=== PATIENT | female | born 1935 | race Caucasian/White ===

== ENCOUNTER 2016-11-10 10:03 | Observation (INO) ==
--- NOTE | 2016-11-10 10:21 | Emergency Department Note ---
Disposition Clinical Impression: Hypertensive urgency Disposition: Admitted As Inpatient Condition: Fair Neuro HPI - General Chief Complaint: ED Neuro Symptoms/Deficit Stated Complaint: high BP, slurred speach, Time Seen by Provider: 11/10/16 10:17 Source: patient, family Limitations: no limitations Nursing Notes Reviewed: Yes Vital Signs Reviewed: Yes - History of Present Illness HPI Narrative: Mrs. Mendes, an 81yo female, presents from home by EMS with CC: slurred speech , HTN. Patient's granddaughter bedside. Patient has been being managed for HTN on outpatient basis by PCP. A family member who is a PA has been checking on her. On phone conversation with family member last night, patient was at baseline. Phone conversation this morning, same family member noted slurred and slowed speech. Patient's granddaughter noted that, while walking into the emergency department today, patient veered to the right though she should have been walking straight. Patient states that she is not having difficulty finding her words however she does note difficulty speaking her words. Denies difficulty chewing or swallowing. Admits: Difficulty speaking. Denies: Difficulty finding words, difficulty chewing, difficulty swallowing, chest pain, palpitations, weakness, abdominal pain, changes in bowel or bladder , headache. No hx CAD, ACS, CVA. Last known normal was last night, specific time unknown. Patient lives at home alone. PMH: HTN, HLD, depression - Related Data Home Medications: Home Medications Medication Instructions Recorded Confirmed Atorvastatin Calcium [Lipitor] 20 mg PO DAILY 03/18/16 11/10/16 Levothyroxine [Synthroid] 25 mcg PO DAILY 03/18/16 11/10/16 Metoprolol [Lopressor] 100 mg PO DAILY 03/18/16 11/10/16 Multivitamin [Multi-Day Vitamins] 1 tab PO DAILY 03/18/16 11/10/16 Losartan/Hydrochlorothiazide 1 tab PO DAILY 11/10/16 11/10/16 [Hyzaar 100-25 Tablet] Paroxetine HCl [Paxil] 20 mg PO DAILY 11/10/16 11/10/16 Allergies/Adverse Reactions: Allergies Allergy/AdvReac Type Severity Reaction Status Date / Time No Known Allergies Allergy Verified 04/01/16 09:48 All systems ED: reviewed and negative except as stated. (as per HPI) Past Medical History - Past Medical History Medical history: Reports: hyperlipidemia, hypertension, thyroid disease, other Surgical history: Reports: , other Psychiatric history: Reports: no psych history - Social History Smoking Status: Unknown if ever smoked Smokeless Tobacco Status: No Alcohol use: Reports: none Drug use: Reports: none Physical Exam General: Patient is alert, oriented, and in no acute distress. Her speech is slowed but she is still able to articulate her words with mild dysarthria. HEENT: No facial asymmetry. Head is normocephalic and atraumatic. PERRLA, EOMI. trachea midline. Cardiovascular: Heart regular rate and rhythm without clicks, rubs, gallops, or murmurs. No JVD. PMI nondisplaced. Respiratory: Symmetric chest rise with good respiratory effort. Bilateral breath sounds are clear without wheezing, crackles, or rhonchi. Abdomen: Bowel sounds present normoactive x-4 quadrants. Abdomen is soft, nondistended, and nontender. No organomegaly noted. Musculoskeletal: Muscle strength 5/5 and symmetric bilaterally in upper and lower extremities. DTRs 2/4 and symmetric bilaterally in upper and lower extremities. Neuro: Cranial nerves II through XII without deficit. Sensation light touch intact. Negative finger-nose, negative [id number]. Psych: Patient's affect is appropriate for situation. - General Limitations: no limitations General appearance: alert, in no apparent distress Course Course Narrative: Patient is not a candidate for TPA given her last known well is greater than 6 hours ago. Will not call code stroke at this time. We will continue stroke workup however. Given patient's poorly controlled hypertension, concern of central etiology includes hypertensive encephalopathy, lacunar infarcts, aneurysm, intracerebral hemorrhage. Anticipate admission for continued neurologic workup. Final disposition pending results and discussed with my attending. Labwork unremarkable, specifically no electrolyte abnormalities, no anemia, negative troponin. CXR and CT head impression as no acute abnormalities. Chest X-Ray 11/10/16 10:20 IMPRESSION: Mild left basilar atelectasis or developing infiltrate. D/ / 11/10/2016 10:37:36 Negrito Hurtado MD / [facility]ie Interpreting Provider: Negrito Hurtado MD Head CT 11/10/16 10:20 IMPRESSION: No acute intracranial abnormality. D/ / Judy Cotto MD / Judy Cotto MD Interpreting Provider: Judy Cotto MD Patient's BP is 200/100. Gave 5mg hydralazine. BP improved to 170's/80. Spoke with hospitalist, Dr. Gray, who agrees to accept the patient for continued management of HTN and continued neuro workup. Vital Signs Temperature 98.1 F 11/10/16 10:06 Pulse Rate 70 11/10/16 10:06 Respiratory Rate 18 11/10/16 10:06 Blood Pressure 202/99 11/10/16 10:06 O2 Sat by Pulse Oximetry 96 11/10/16 10:06 Temperature 97.5 F L 11/10/16 12:18 Pulse Rate 68 11/10/16 12:18 Respiratory Rate 17 11/10/16 12:18 Blood Pressure 183/97 11/10/16 12:18 O2 Sat by Pulse Oximetry 96 11/10/16 12:18 Oxygen Delivery Oxygen Delivery Room Air Neuro Symptoms/Deficit - Medical Records Medical records reviewed: Yes I reviewed the patient's medical records. - Lab Data Lab results reviewed: Yes I reviewed the patient's lab results. Result diagrams: 11/10/16 10:20 11/10/16 10:20 Lab Results 11/10/16 11/10/16 11/10/16 Range/Units 10:09 10:20 10:20 WBC 9.6 (4.3-11.1) K/mcL RBC 4.22 (3.82-4.97) M/mcL Hgb 13.3 (11.5-15.4) g/dL Hct 39.5 (35.3-44.9) % MCV 93.6 (83.0-100.0) fL MCH 31.5 (28.0-33.3) pg MCHC 33.7 (31.6-35.5) g/dL RDW 12.6 (11.5-14.5) % Plt Count 137 L (140-400) K/mcL MPV 10.9 (9.4-12.4) fL Immature Gran % 0.4 (0-4) % Seg Neutrophils % 83.8 % Lymphocytes % 10.1 % Monocytes % 5.3 % Eosinophils % 0.1 % Basophils % 0.3 % Neutrophils # 8.1 (1.6-8.9) K/mcL Lymphocytes # 1.0 (0.6-4.6) K/mcL Monocytes # 0.5 (0.0-1.3) K/mcL Eosinophils # 0.0 (0.0-0.6) K/mcL Basophils # 0.0 (0.0-0.2) K/mcL PT 12.2 H (9.4-12.1) Seconds INR 1.1 APTT 27.5 (26.0-36.0) Seconds Sodium (136-145) mEq/L Potassium (3.5-4.5) mEq/L Chloride (98-109) mEq/L Carbon Dioxide (19-29) mEq/L BUN (7-20) mg/dL Creatinine (0.57-1.11) mg/dL Est GFR ( Amer) (> 60) Est GFR (Non-Af Amer) (> 60) BUN/Creatinine Ratio (6-26) Glucose (70-99) mg/dL POC Glucose 111 H (58-89) Calculated Osmolality (280-300) Calcium (8.6-10.8) mg/dL Troponin I (0-0.03) ng/mL 11/10/16 11/10/16 Range/Units 10:20 10:20 WBC (4.3-11.1) K/mcL RBC (3.82-4.97) M/mcL Hgb (11.5-15.4) g/dL Hct (35.3-44.9) % MCV (83.0-100.0) fL MCH (28.0-33.3) pg MCHC (31.6-35.5) g/dL RDW (11.5-14.5) % Plt Count (140-400) K/mcL MPV (9.4-12.4) fL Immature Gran % (0-4) % Seg Neutrophils % % Lymphocytes % % Monocytes % % Eosinophils % % Basophils % % Neutrophils # (1.6-8.9) K/mcL Lymphocytes # (0.6-4.6) K/mcL Monocytes # (0.0-1.3) K/mcL Eosinophils # (0.0-0.6) K/mcL Basophils # (0.0-0.2) K/mcL PT (9.4-12.1) Seconds INR APTT (26.0-36.0) Seconds Sodium 137 (136-145) mEq/L Potassium 3.6 (3.5-4.5) mEq/L Chloride 100 (98-109) mEq/L Carbon Dioxide 26 (19-29) mEq/L BUN 17 (7-20) mg/dL Creatinine 0.94 (0.57-1.11) mg/dL Est GFR ( Amer) > 60 (> 60) Est GFR (Non-Af Amer) 57 L (> 60) BUN/Creatinine Ratio 18 (6-26) Glucose 106 H (70-99) mg/dL POC Glucose (58-89) Calculated Osmolality 286 (280-300) Calcium 9.7 (8.6-10.8) mg/dL Troponin I 0.00 (0-0.03) ng/mL - Radiology Data Radiology results reviewed: Yes I reviewed the patient's radiology results. Chest X-Ray 11/10/16 10:20 IMPRESSION: Mild left basilar atelectasis or developing infiltrate. D/ / 11/10/2016 10:37:36 Negrito Hurtado MD / [facility] Interpreting Provider: Negrito Hurtado MD Head CT 11/10/16 10:20 IMPRESSION: No acute intracranial abnormality. D/ / Judy Cotto MD / Judy Cotto MD Interpreting Provider: Judy Cotto MD - EKG Data EKG attestation: Yes I reviewed and interpreted this EKG. EKG results narrative: EKG dated 10 November 2016 interpreted as sinus rhythm with rate of 65. Normal intervals. Normal axis. Nonspecific ST-T changes. Compared to previous dated 03/11/2016 showing no acute ischemic changes in comparison. NIH Stroke Scale - Level of Consciousness LOC: Alert - LOC Questions LOC Questions: Answers both correctly - LOC Commands LOC Commands: Performs both correctly - Best Gaze Best Gaze: Normal - Visual Visual: No visual loss - Facial Palsy Facial Palsy: Normal - Motor Arms Motor Arm-Left: No drift for 10 seconds Motor Arm-Right: No drift for 10 seconds - Motor Legs Motor Leg-Left: No drift for 5 seconds Motor Leg-Right: No drift for 5 seconds - Limb Ataxia Limb Ataxia: Absent of affected limb too weak to perform exam - Sensory Sensory: Normal - Best Language Best Language: No aphasia - Dysarthria Dysarthria: Mild, slurs some words - Extinction and Inattention Extinction and Inattention: Normal - NIHSS Total Score NIHSS Total Score: 1 TPA Checklist - Source Information Source: Family - Eligibilty for IV tPA 1. LKW equal to or less than 4.5 hours be before treatment: No - LKW: 3-4.5 hrs Add. Contraindications Patient/family understanding: The patient/family members have been counseled and understood the risk, benefit , and alternatives of treatment. Critical Care Time Critical Care Time: Yes Total Critical Care Time: 35 Attestation: Critical care performed: Time is exclusive of separately billable procedures. Time includes: direct patient care, patient reassessment, coordination of patient care, interpretation of data (laboratory data, radiology data, and respiratory data), review of patient's medical records, medical consultation and documentation of patient care. Procedures included in critical care time: Procedures excluded from critical care time: Attestation Statement - Attestation Attestation: I examined this patient and my medical decision-making was reviewed with the COTTON BREEDER/PA/Advanced Practice Nurse/Resident Physician. I agree with the documented findings, disposition and treatment plan as described except to the extent set forth below. Patient emergency department complaining of difficulty speaking. She is brought in by a family member. They state when they called her today that she was speaking slower and was slurred. She was fine yesterday. They said they have had trouble controlling her blood pressure. She recently had a change in her medications but her pressures been running about 200 systolic. She denies any chest pain. She denies any numbness or tingling in her extremities. On examination she is awake and alert. She moves all extremities. She has no pronator drift. No ataxia. Her speech is slow. Plan. CT head is unremarkable. Also mental status workup is unremarkable as well. The patient is not confused. She having speech difficulties. Unclear if this is stroke versus hypertensive encephalopathy. She is given a dose of hydralazine which did lower her pressure. She is admitted to medicine. At this time her blood pressures in the 170 systolic. Do not want to drop her any further this time.
[2016-11-10 10:31] LABS: Basophils % 0.3 %; Eosinophils % 0.1 %; Hematocrit 39.5 % (35.3-44.9); Hemoglobin 13.3 g/dL (11.5-15.4); Immature Granulocytes % 0.4 % (0-4); Lymphocytes % 10.1 %; Mean Corpuscular HGB Conc 33.7 g/dL (31.6-35.5); Mean Corpuscular Hemoglobin 31.5 pg (28.0-33.3); Mean Corpuscular Volume 93.6 fL (83.0-100.0); Mean Platelet Volume 10.9 fL (9.4-12.4); Monocytes # 0.5 K/mcL (0.0-1.3); Monocytes % 5.3 %; Neutrophils # 8.1 K/mcL (1.6-8.9); Platelet Count 137 K/mcL (140-400); Red Blood Count 4.22 M/mcL (3.82-4.97); Red Cell Distribution Width 12.6 % (11.5-14.5); Segmented Neutrophils % 83.8 %
[2016-11-10 10:37] LABS: INR 1.1; Prothrombin Time 12.2 Seconds (9.4-12.1)
[2016-11-10 10:40] LABS: Activated Partial Thrombo Time 27.5 Seconds (26.0-36.0)
[2016-11-10 10:43] LABS: BUN/Creatinine Ratio 18 (6-26); Blood Urea Nitrogen 17 mg/dL (7-20); Calcium 9.7 mg/dL (8.6-10.8); Carbon Dioxide 26 mEq/L (19-29); Chloride 100 mEq/L (98-109); Glucose 106 mg/dL (70-99); Osmolality,Calculated 286 (280-300); Potassium 3.6 mEq/L (3.5-4.5); Sodium 137 mEq/L (136-145); eGFR For African Americans > 60 (> 60); eGFR For Non-African Americans 57 (> 60)
[2016-11-10] MEDS ORDERED: Acetaminophen 325 MG TABLET PO PRN (13:31)
[2016-11-10] MEDS ORDERED: Naloxone 0.4 MG/ML INJ IVP PRN (13:31)
--- NOTE | 2016-11-10 14:02 | Internal Med History&Physical ---
Date of Encounter: 11/10/16 Time of Encounter: 12:30 Assessment and Plan (1) Difficulty speaking Current visit: Yes Status: Acute CT of the head showed no acute intracranial process, chronic small vessel disease ischemic changes. EKG showed sinus rhythm and heart rate 64. No acute changes. Check MRI of the brain, Doppler of carotids, echocardiogram. Aspirin. Lipitor. Blood pressure control. (2) Hypertensive urgency Current visit: Yes Status: Acute Patient took his morning metoprolol 100 mg and Hyzaar 100-25. Her blood pressure in ED was 202/99. She received IV hydralazine 5 mg with improvement of blood pressure to 183/97. Decrease metoprolol to 25 mg in the morning. Change losartan to 50 mg twice a day. To start hydralazine 50 mg 3 times a day. Hold for SBP < 160. We will continue to monitor blood pressure and adjust medications accordingly. (3) CVA (cerebral vascular accident) Current visit: Yes Status: Suspected suspected expressive aphasia. plan as above. Qualifiers: CVA mechanism: unspecified Qualified Code(s): I63.9 - Cerebral infarction, unspecified (4) Hyperlipidemia Current visit: Yes Status: Acute continue lipitor Qualifiers: Hyperlipidemia type: unspecified Qualified Code(s): E78.5 - Hyperlipidemia , unspecified Internal Medicine - H&P: HPI Chief complaint: Slurred speech this morning Admitted From: Home Plans for Post Hospital Care: Home History of present illness: Ms. Mendes is a 81 year old female with past medical history of hypertension and hyperlipidemia who was brought by family members to [address] [place] [address]. A week ago, the patient had a SBP of 220 and she developed mild shortness of breath on exertion. She was started on metoprolol 100 mg daily but her SBP continued to be elevated in the 180. This morning, her granddaughter, who is a PA, noted that the patient was having difficulty speaking, and some dizziness. Last time the patient was seen normal was yesterday night while talking over the phone with her daughter. She denies any chest pain, headaches, syncope, lower extremity edema, pain, bleeding, abdominal pain, other focal deficits, new vision problems or urinary complaints. Patient states that she has no difficulty finding the words but she has trouble in speaking her mind fast. Per daughter, the patient is almost at her baseline now Past Med Surg Social Fam HX - Past Medical History Medical history: hyperlipidemia, hypertension, thyroid disease, other Psychiatric history: no psych history - Past Surgical History Surgical History: , other - Social History Smoking Status: Unknown if ever smoked Smokeless Tobacco Status: No Alcohol use: none Drug use: none - Family History Mother Hx Family Cardiac Disorders: Yes (htn) Internal Medicine - H&P: Meds Atorvastatin Calcium [Lipitor] 20 mg PO DAILY 03/18/16 [History] Levothyroxine [Synthroid] 25 mcg PO DAILY 03/18/16 [History] Metoprolol [Lopressor] 100 mg PO DAILY 03/18/16 [History] Multivitamin [Multi-Day Vitamins] 1 tab PO DAILY 03/18/16 [History] Losartan/Hydrochlorothiazide [Hyzaar 100-25 Tablet] 1 tab PO DAILY 11/10/16 [ History] Paroxetine HCl [Paxil] 20 mg PO DAILY 11/10/16 [History] Allergies No Known Allergies Allergy (Verified 04/01/16 09:48) All Systems PM: A 10-system review of systems was performed and is negative for pertinent findings except as documented above in the HPI. - Constitutional Vitals: Temp Pulse Resp BP Pulse Ox 97.5 F L 68 17 183/97 96 11/10/16 12:18 11/10/16 12:18 11/10/16 12:18 11/10/16 12:18 11/10/16 12:18 General appearance: Present: cooperative, A&O X 3, pleasant, no acute distress, answers questions appropriately - Eye Eye exam: Present: PERRL, sclera anicteric - Neck Neck exam general surgery: Present: supple, trachea midline. Absent: lymphadenopathy - Respiratory Respiratory exam: Present: CTAB - Cardiovascular Cardiovascular exam: Present: RRR - GI/Abdominal GI/Abdominal exam: Present: normal bowel sounds, soft. Absent: distended, tenderness - Extremities Exam Extremities exam: Absent: pedal edema (puffy legs, no pitting edema) - Back Exam Back exam: Absent: CVA tenderness (L), CVA tenderness (R) - Neurological Exam Neurological exam: Present: alert, CN II-XII intact (grossly intact), motor sensory deficit, normal gait, oriented X3, no focal deficits, strengths equal and symetr throughout. Absent: pronater drift, facial droop, speech deficit - Skin Skin exam: Present: dry. Absent: rash Internal Med - H&P Results - Labs CBC & Chem 7: 11/10/16 10:20 11/10/16 10:20
[2016-11-10] MEDS: hydrALAZINE 25 MG TABLET PO SCH ×3 (14:48→23:23)
[2016-11-10] MEDS: Aspirin 81 MG TAB.CHEW PO SCH (14:49)
[2016-11-10 21:42] LABS: Bilirubin,Urine Negative (Negative); Blood,Urine Negative (Negative); Clarity,Urine Clear (Clear); Color,Urine Yellow (Yellow); Glucose,Urine (UA) Normal (Normal); Ketones,Urine Negative (Negative); Leukocyte Esterase,Urine Negative (Negative); Nitrite,Urine Negative (Negative); PH,Urine 6.5 pH Units (5.0-8.0); Protein,Urine Negative (Neg-Trace); Specific Gravity,Urine 1.009 (1.010-1.025); Urobilinogen,Urine Normal (Normal)
[2016-11-11 04:58] LABS: Basophils % 0.5 %; Eosinophils # 0.1 K/mcL (0.0-0.6); Eosinophils % 0.9 %; Hemoglobin 12.4 g/dL (11.5-15.4); Immature Granulocytes % 0.3 % (0-4); Lymphocytes # 1.2 K/mcL (0.6-4.6); Lymphocytes % 15.2 %; Mean Corpuscular HGB Conc 34.4 g/dL (31.6-35.5); Mean Corpuscular Hemoglobin 31.8 pg (28.0-33.3); Mean Corpuscular Volume 92.3 fL (83.0-100.0); Mean Platelet Volume 11.3 fL (9.4-12.4); Monocytes # 0.6 K/mcL (0.0-1.3); Monocytes % 7.7 %; Neutrophils # 5.9 K/mcL (1.6-8.9); Platelet Count 121 K/mcL (140-400); Red Cell Distribution Width 12.5 % (11.5-14.5); Segmented Neutrophils % 75.4 %
[2016-11-11 05:12] LABS: BUN/Creatinine Ratio 21 (6-26); Blood Urea Nitrogen 18 mg/dL (7-20); Calcium 9.3 mg/dL (8.6-10.8); Carbon Dioxide 28 mEq/L (19-29); Chloride 99 mEq/L (98-109); Chol/HDL Ratio 3.2 (0-4.9); Cholesterol 109 mg/dL (< 200); Glucose 94 mg/dL (70-99); HDL Cholesterol 34 mg/dL (40-59); LDL Cholesterol,Calculated 55 mg/dL (0-99); Magnesium 1.8 mg/dL (1.6-2.6); Osmolality,Calculated 284 (280-300); Phosphorous 3.4 mg/dL (2.3-4.7); Sodium 136 mEq/L (136-145); Triglycerides 101 mg/dL (< 150); eGFR For African Americans > 60 (> 60); eGFR For Non-African Americans > 60 (> 60)
[2016-11-11] MEDS ORDERED: Metoprolol 100 MG TABLET PO SCH ×2 (09:00)
[2016-11-11] MEDS ORDERED: Levothyroxine 25 MCG TABLET PO SCH (09:00)
[2016-11-11] MEDS: hydrALAZINE 25 MG TABLET PO SCH ×2 (09:05→09:07)
[2016-11-11] MEDS: Aspirin 81 MG TAB.CHEW PO SCH (09:05)
[2016-11-11 10:44] VITALS: BP 169/67
--- NOTE | 2016-11-11 11:55 | ECHO - Doppler Report ---
Echo with Saline Contrast Name: Agnieszka Mendes Date of Study: 11/10/2016 Date: 1935 Ht: 60.0 in Medical Record#: [id number] Age: 81 Wt: 121.0 lb Gender: Female BSA: 1.51 Order #: [id number] Location: [facility] Room #: 3B11 Reading Physician: Dotty Sr DO Call Center Recruiter: Alka Moreno RVT Ordering Physician: Uzma Diez MD Primary Physician: Iris García CNP Indications: Cerebrovascular Accident Impressions: LVEF 60%. Normal left ventricular size and systolic function. There is evidence of mild diastolic dysfunction of the left ventricle. Normal right ventricular size and function. Mild-moderate mitral regurgitation. Mild-moderate tricuspid regurgitation. Mild-moderate pulmonic regurgitation. No pulmonary hypertension. No PFO with saline contrast. Left Ventricular Wall Motion: Rest Echo Findings All wall segments showed normal motion. Findings: Study Quality * Technically adequate exam. ECG Findings * Normal sinus rhythm. Left Ventricle * LVEF 60%. * Normal LV chamber size, wall thickness and function. * Mild left ventricular diastolic dysfunction. Mitral Valve * Normal mitral valve structure. * No mitral stenosis. * Mild-moderate mitral regurgitation. Aortic Valve * No aortic regurgitation. * Trileaflet aortic valve. * Normal aortic valve structure. * No aortic stenosis. Tricuspid Valve * Tricuspid valve not well visualized. * Mild-moderate tricuspid regurgitation. * Estimated RA pressure is 3 mmHg. * Estimated RVSP is 26 mmHg. * No pulmonary hypertension. Pulmonic Valve * Pulmonic valve is not well visualized. * No pulmonic stenosis. * Mild-moderate pulmonic regurgitation. Pulmonary Artery * Pulmonary artery not well visualized. Right Ventricle * Normal right ventricular structure and function. Right Atrium * Normal right atrial size. Left Atrium * Mildly dilated left atrium. Interatrial Septum * No evidence of PFO by color Doppler. * No evidence of PFO with agitated saline contrast. IVC * The IVC is not dilated. Pericardium * There is no pericardial effusion present. Aorta * Normally sized aortic root. History Hypertension Hypercholesteremia Family History of CAD Contrast: Agitated saline 20 ml. Measurements: BP: 134/ 76 2D Normal Values RVIDd: 3.00 cm <2.7 cm IVSd: .80 cm 0.6 - 1.0 cm LVIDd: 4.40 cm 3.7 - 5.6 cm LVPWd: .90 cm 0.6 - 1.1 cm LVIDs: 2.90 cm 1.5 - 3.6 cm AO: 2.60 cm < 4.0 cm LA: 3.10 cm 2.0 - 4.0cm %FS: 34.10 cm >25 % LA volume: 36 Mitral Valve Peak E:.63 m/sec Peak A:.84 m/sec E/A Ratio:0.8 Peak E' Lat Manjit:5.61 cm/s Peak E' Med Manjit:5.54 cm/s E/E' Lat Ratio:11.3 E/E' Med Ratio:11.4 Tricuspid Valve TV Regurg Peak Grad: 23.00mmHg TV Regurg Peak Manjit: 2.39m/sec Updated by Dotty Sr on 11/11/2016 11:47:21 AM electronically signed on 11/11/2016 11:48:42 AM with status of Final Wall Motion Rowe: 1=Normal, 2=Hypokinesis, 3=Akinesis, 4=Dyskinesis, 5=Aneurysmal, 6=Hyperkinetic, X=Not Visualized (Blank)=Missing
--- NOTE | 2016-11-11 15:06 | Discharge Summary ---
Date of Encounter: 11/11/16 Time of Encounter: 14:15 - Discharge Diagnosis (1) CVA (cerebral vascular accident) Priority: Primary Status: Resolved Comments: Patient asymptomatic throughout this admission. Blood pressure more controlled. Head CT negative. Brain MRI negative. Carotid ultrasound unremarkable. CVA ruled out. Qualifiers: CVA mechanism: unspecified Qualified Code(s): I63.9 - Cerebral infarction, unspecified (2) Difficulty speaking Priority: Primary Status: Resolved (3) Hyperlipidemia Priority: Secondary Status: Chronic Comments: Lipid panel unremarkable, recommend continue statin and a low-cholesterol diet Qualifiers: Hyperlipidemia type: unspecified Qualified Code(s): E78.5 - Hyperlipidemia , unspecified (4) Hypertensive urgency Priority: Primary Status: Resolved - Discharge Medications Prescriptions: Aspirin 81 mg PO DAILY #30 tab.chew Hydralazine HCl 50 mg PO Q8H #90 tablet Losartan [Cozaar] 50 mg PO BID #60 tablet Metoprolol [Lopressor] 25 mg PO DAILY #30 tablet Home Medications: Atorvastatin Calcium [Lipitor] 20 mg PO DAILY 03/18/16 [History] Levothyroxine [Synthroid] 25 mcg PO DAILY 03/18/16 [History] Multivitamin [Multi-Day Vitamins] 1 tab PO DAILY 03/18/16 [History] Paroxetine HCl [Paxil] 20 mg PO DAILY 11/10/16 [History] Aspirin 81 mg PO DAILY #30 tab.chew 11/11/16 [Rx] Hydralazine HCl 50 mg PO Q8H #90 tablet 11/11/16 [Rx] Losartan [Cozaar] 50 mg PO BID #60 tablet 11/11/16 [Rx] Metoprolol [Lopressor] 25 mg PO DAILY #30 tablet 11/11/16 [Rx] Allergies/Adverse Reactions: Allergies No Known Allergies Allergy (Verified 04/01/16 09:48) Procedures/tests Complete & Pending: Procedures Performed prior 72 hours Category Date Time Status MR head/brain wo con [MR] Routine MRI 11/10/16 13:28 Completed ECG 12 lead ECG [ECG] Routine Y 11/10/16 10:13 Completed EV carotid duplex imaging BI Routine Y 11/10/16 13:28 Completed EV echocardiogram Routine Y 11/10/16 13:28 Completed Date of admission: 11/10/16 11:49 Primary care physician: Iris García CNP Consults: 11/10/16 13:52 Consult to Speech Therapy [CONS] Routine Comment: Evaluate, develop and implement POC Reason for Consult: slurred speech Call Completed: No Discharging clinician: Karla Lovelace Anticipated date of discharge: 11/11/16 - Patient Status Disposition: Home, Self-Care Condition: Good Functional capacity at discharge: independent ambulation Overall status at discharge: patient is back to baseline - Discharge Instructions Instructions: Transient Ischemic Attack (GEN), Hypertension (GEN) Follow Up With: Iris García CNP [Primary Care Provider] - Additional Instructions: Follow-up with primary care provider in one to 2 weeks, check blood pressure daily. - Diet and Activity Activity: increase activity as tolerated Diet: low fat, low cholesterol, low salt diet Hospital course: Ms. Mendes is a 81 year old female with past medical history of hypertension, hyperlipidemia, thyroid disease. Patient was brought to the emergency department by family members secondary to slurred speech. Last week, patient had a systolic blood pressure of 220 and she developed mild shortness of breath with exertion. She was started on metoprolol 100 mg daily but her blood pressure continued to be elevated with a systolic blood pressure consistently in the 180s. On the morning of presentation, the patient's granddaughter noticed that she was having difficulty speaking and was associated with some dizziness. Patient denied any chest pain, headaches, syncope, vision problems, urinary complaints. Workup in the emergency department unremarkable. Chest x- ray with mild bibasilar atelectasis. Head CT negative. Patient was admitted to the hospitalist service for further evaluation and management. Patient had returned to her baseline prior to admission. No focal neurological weaknesses noted. Patient denied pain or shortness of breath throughout this admission. Brain MRI negative for acute processes. Echocardiogram unremarkable with ejection fraction of 60%. Patient euvolemic on examination throughout this admission. Carotid Doppler unremarkable. Her blood pressure was initially uncontrolled and her educations were adjusted. She was normotensive on the discharge. Her home dosing of metoprolol 100 mg daily was changed to 25 mg daily. Losartan/HCTZ was discontinued and she was started on losartan 100 mg. She was also started on hydralazine 50 mg every 8 hours. She was discharged home in stable condition with close outpatient follow-up recommended. She was also instructed to perform daily blood pressure checks, keep a log, and follow- up with her primary care provider. Of note, as the patient had no focal neurological weaknesses, OT and PT consultations were not warranted. Speech therapy was brought on board who surmised she had no needs. ITS Impressions Chest X-Ray 11/10/16 10:20 IMPRESSION: Mild left basilar atelectasis or developing infiltrate. D/ / 11/10/2016 10:37:36 Negrito Hurtado MD / frankie Interpreting Provider: Negirto Hurtado MD Head CT 11/10/16 10:20 IMPRESSION: No acute intracranial abnormality. D/ / Judy Cotto MD / Judy Cotto MD Interpreting Provider: Judy Cotto MD Brain MRI 11/10/16 13:28 IMPRESSION: No acute intracranial abnormality. Mild parenchymal volume loss. Mild chronic microvascular disease. D/ / Thomas Queen MD / Thomas Queen MD Interpreting Provider: Thomas Queen MD Echo with saline contrast impressions: LVEF 60%. Normal left ventricular size and systolic function. There is evidence of mild diastolic dysfunction of the left ventricle. Normal rectal ventricular size and function. Mild-moderate mitral regurgitation. Mild-moderate tricuspid regurgitation. Mild-moderate pulmonic regurgitation. No pulmonary hypertension. No PFO with saline contrast. 11/10/16 18:42 - Vascular Preliminary by [facility]: [id number] : 1935 Patient Age: 81 Carotid Doppler Preliminary Report Nonstenotic plaque only bilateral - Time Spent with Patient Total time spent providing and/or coordinating discharge services: - Constitutional Vitals: Temp Pulse Resp BP Pulse Ox 97.5 F L 61 16 169/67 95 11/11/16 10:43 11/11/16 10:43 11/11/16 10:43 11/11/16 10:43 11/11/16 10:43 General appearance: Present: cooperative, A&O X 3, pleasant, no acute distress, answers questions appropriately - Head Head exam: Present: atraumatic, normocephalic - Eye Eye exam: Present: PERRL, conjuntiva pink, sclera anicteric Pupils: Present: PERRL - Neck Neck exam general surgery: Present: supple, trachea midline. Absent: lymphadenopathy - Respiratory Respiratory exam: Present: CTAB. Absent: accessory muscle use, rales, respiratory distress, rhonchi, wheezes - Cardiovascular Cardiovascular exam: Present: RRR, +S1, +S2. Absent: diastolic murmur, gallop, rubs, systolic murmur - GI/Abdominal GI/Abdominal exam: Present: normal bowel sounds, soft, no peritoneal signs. Absent: distended, tenderness - Extremities Exam Extremities exam: Present: warm, radial pulses palpable and symetrical. Absent : calf tenderness, cyanotic, pedal edema - Neurological Exam Neurological exam: Present: alert, CN II-XII intact, normal gait, oriented X3, no focal deficits, strengths equal and symetr throughout. Absent: pronater drift, facial droop, speech deficit - Skin Skin exam: Present: dry, intact, normal color, warm
--- NOTE | 2016-11-11 15:25 | Electrocardiograph Report ---
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
--- NOTE | 2016-11-11 19:39 | Carotid Imaging Report ---
Carotid Duplex Patient Name:Agnieszka Mendes Order Number:[id number] Procedure Date:11/10/2016 Date:1935ge:81 yrs Gender:Female Lt BP:134 / 76 mmHg Location:[facility] Room #: 3B11 Manager Nicu:Alka Moreno RVT Referring MD:Uzma Diez MD raised printer:Iris García, [employer] Reading MD:John Peacock MD , FACS Risk Factors Yes/No Hypertension Yes Hypercholesterolemia Yes Impressions: Findings: Bilateral carotid system have nonstenotic plaque. Findings Carotid Duplex: Right: There is nonstenotic plaque in the right bifurcation. There is smooth heterogeneous plaque. There is nonstenotic plaque in the right proximal internal carotid artery. There is smooth heterogeneous plaque. Left: There is nonstenotic plaque in the left bifurcation. There is smooth heterogeneous plaque. There is nonstenotic plaque in the left proximal internal carotid artery. There is smooth heterogeneous plaque. Prior Study: No prior study available for comparison. Carotid Results Right PSV EDV Assessment Proximal CCA 48 11 Normal Mid CCA 53 11 Normal Distal CCA 50 10 Normal Bifurcation 46 8 Non Stenotic Plaque Proximal ICA 39 9 Non Stenotic Plaque Mid ICA 81 15 Normal Distal ICA 81 18 Normal ECA 98 11 Normal Vertebral Artery 40 9 Antegrade Flow Left PSV EDV Assessment Proximal CCA 75 11 Normal Mid CCA 52 12 Normal Distal CCA 54 10 Normal Bifurcation 47 7 Non Stenotic Plaque Proximal ICA 43 10 Non Stenotic Plaque Mid ICA 79 19 Normal Distal ICA 90 16 Normal ECA 82 7 Normal Vertebral Artery 48 11 Antegrade Flow Ratio's Right ICA/CCA Ratio: 1.52 ICA/CCA Values: 81/53 Left ICA/CCA Ratio: 1.73 ICA/CCA Values: 90/52 Updated by John Peacock MD, FACS on 11/11/2016 7:34:38 PM John Peacock MD electronically signed on 11/11/2016 7:35:17 PM with status of Final
== END 2016-11-11 16:30 | disposition home or self-care (01) ==
LOC: 3BNU 10:03 → EMEROO 10:03 → 3BNU 12:00
PROVIDERS: ADMIT Nurse Practitioner Family; ATTEND Nurse Practitioner Family

== ENCOUNTER 2019-08-31 18:53 | Inpatient (IN) ==
[2019-09-01] MEDS ORDERED: Naloxone 0.4 MG/ML INJ IVP PRN (00:11)
[2019-09-01] MEDS ORDERED: 0.9 % Sodium Chloride 1,000 ML IVC SCH (00:15)
[2019-09-01] MEDS ORDERED: *HR* Metoprolol 5 MG/5 ML VIAL IVP ONE (00:22)
[2019-09-01 00:46] LABS: Basophils % 0.1 %; Red Cell Distribution Width 12.5 % (11.5-14.5)
[2019-09-01 00:48] LABS: Hematocrit 38.6 % (35.3-44.9); Immature Granulocytes % 0.5 % (0-4); Immature Platelets 4.2 % (1.1-6.1); Lymphocytes # 0.3 K/mcL (0.6-4.6); Lymphocytes % 2.9 %; Mean Corpuscular HGB Conc 33.7 g/dL (31.6-35.5); Mean Corpuscular Hemoglobin 32.6 pg (28.0-33.3); Mean Corpuscular Volume 96.7 fL (83.0-100.0); Mean Platelet Volume 11.1 fL (9.4-12.4); Monocytes # 0.4 K/mcL (0.0-1.3); Monocytes % 3.6 %; Red Blood Count 3.99 M/mcL (3.82-4.97); Segmented Neutrophils % 92.9 %; White Blood Count 10.4 K/mcL (4.3-11.1)
[2019-09-01 00:49] LABS: Neutrophils # 9.7 K/mcL (1.6-8.9); Platelet Count 91 K/mcL (140-400)
[2019-09-01 01:06] LABS: Alanine Aminotransferase 14 Units/L (7-52); Albumin 3.6 g/dL (3.5-5.7); Albumin/Globulin Ratio 1.6 (1.1-2.2); Alkaline Phosphatase 64 Units/L (34-104); Aspartate Amino Transferase 19 Units/L (13-39); BUN/Creatinine Ratio 22 (6-26); Bilirubin,Total 0.5 mg/dL (0.3-1.0); Blood Urea Nitrogen 18 mg/dL (8-23); Calcium 8.3 mg/dL (8.6-10.3); Carbon Dioxide 24 mEq/L (23-29); Chloride 109 mEq/L (98-107); Globulin 2.2 g/dL (2.4-3.5); Glucose 175 mg/dL (70-105); Osmolality,Calculated 300 (280-300); Potassium 3.6 mEq/L (3.5-5.1); Sodium 142 mEq/L (136-145); Total Protein 5.8 g/dL (6.4-8.9); eGFR For African Americans > 60 (> 60); eGFR For Non-African Americans > 60 (> 60)
[2019-09-01] MEDS ORDERED: Ondansetron 4 MG/2 ML VIAL IVP PRN (01:08)
[2019-09-01 01:20] LABS: Amylase 842 Units/L (29-103); Lipase > 1800 Units/L (11-82)
[2019-09-01] MEDS: Ringers Solution, Lactated 1,000 ML IVC SCH ×2 (08:41→15:35)
[2019-09-02 05:41] LABS: BUN/Creatinine Ratio 27 (6-26); Blood Urea Nitrogen 22 mg/dL (8-23); Calcium 8.3 mg/dL (8.6-10.3); Carbon Dioxide 25 mEq/L (23-29); Chloride 108 mEq/L (98-107); Glucose 108 mg/dL (70-105); Lipase 379 Units/L (11-82); Osmolality,Calculated 294 (280-300); Potassium 3.4 mEq/L (3.5-5.1); Sodium 140 mEq/L (136-145); eGFR For African Americans > 60 (> 60); eGFR For Non-African Americans > 60 (> 60)
[2019-09-02] MEDS: Metoprolol XL (24 HR) Succ 25 MG TAB.ER.24H PO SCH (11:50)
[2019-09-03 08:01] LABS: BUN/Creatinine Ratio 28 (6-26); Blood Urea Nitrogen 21 mg/dL (8-23); Calcium 8.3 mg/dL (8.6-10.3); Carbon Dioxide 24 mEq/L (23-29); Chloride 104 mEq/L (98-107); Glucose 88 mg/dL (70-105); Osmolality,Calculated 284 (280-300); Potassium 3.5 mEq/L (3.5-5.1); Sodium 136 mEq/L (136-145); eGFR For African Americans > 60 (> 60); eGFR For Non-African Americans > 60 (> 60)
[2019-09-03] MEDS: Metoprolol XL (24 HR) Succ 25 MG TAB.ER.24H PO SCH (08:53)
[2019-09-03] MEDS ORDERED: Aspirin 81 MG TAB.CHEW PO SCH (09:00)
[2019-09-03 13:26] VITALS: BP 153/97
[2019-09-03] MEDS ORDERED: FLU Vac QV 19-20 (6Month+)/PF 0.5 ML SYRINGE IM ONE (15:14)
== END 2019-09-03 16:00 | disposition home or self-care (01) | DRG 439 ==
LOC: 3ANU → SUATTDRO 20:17
PROVIDERS: ADMIT Internal Medicine; ATTEND Internal Medicine